=== PATIENT | male | born 1955 | race Caucasian/White ===

== ENCOUNTER 2019-09-10 09:05 | Outpatient (CLI) | payer MEDICARE, OTHER, SELFPAY ==
--- NOTE | 2019-09-10 09:09 | CT_ITS ---
WS: [id number] CT LUNG CANCER SCREENING DLP: 56.28 mGy.cm DIvol: 1.52 mGy CLINICAL INFORMATION SCREENING VISIT: Baseline COMPARISON: None available. FINDINGS Diagnostic quality: Satisfactory Comments: None. Lung Nodules: 2 mm perifissural nodule along the LEFT. Otherwise no pulmonary nodules. Lungs: Hyperinflated lungs with emphysema. No pneumonia. Endobronchial tree is negative. No pleural e ffusion. Heart: Heart chambers are slightly enlarged. Moderate calcification along the LEFT anterior descendin g coronary artery and LEFT circumflex. No pericardial effusion. Other findings: Minimal atherosclerosis aorta. No mediastinal or hilar adenopathy. Possible LEFT adre nal adenoma. There is some very mild thickening in the region of the adrenal gland. Cannot further ev aluated on this low-dose CT. CT/CT lung screening [id number] IMPRESSION: LUNG-RADS: 1S-Negative with Significant Findings FOLLOW UP: 12 Month: Continue annual screening with LDCT 1. Moderate coronary artery calcification.
== END 2019-09-10 09:06 | disposition home or self-care (01) ==
LOC: CT 09:06
PROVIDERS: Family Provider Internal Medicine; Visit Provider Internal Medicine
DX: Z12.2 Encounter for screening for malignant neoplasm of respiratory organs (principal); F17.210 Nicotine dependence, cigarettes, uncomplicated; I25.10 Atherosclerotic heart disease of native coronary artery without angina pectoris
CPT/HCPCS: G0297